=== PATIENT | male | born 1970 | race Caucasian/White ===

== ENCOUNTER → 2017-09-15 13:00 | Outpatient (CLI) | payer BC, SELFPAY ==
[2017-09-16 09:33] LABS: HEPATITIS B SURFACE AG Negative (Negative); Hep C Antibodies <0.1 s/co ratio (0.0-0.9)
== END ==
PROVIDERS: Family Provider Family Medicine; PCP Family Medicine
DX: F11.20 Opioid dependence, uncomplicated (principal)
CPT/HCPCS: 36415; 86803; 87340

== ENCOUNTER 2019-08-30 19:32 | Emergency (ER) | payer BC, SELFPAY ==
[2019-08-30 19:32] VITALS: BP 142/107; PULSE 81; RESP 16; TEMP 36.6; O2SAT 97; BMI 20.3
--- NOTE | 2019-08-30 19:48 | EKG12_ITS ---
Test Reason : DYSRHYTHMIA Blood Pressure : / mmHG Vent. Rate : 085 BPM Atrial Rate : 085 BPM P-R Int : 152 ms QRS Dur : 094 ms QT Int : 356 ms P-R-T Axes : 060 059 072 degrees QTc Int : 423 ms Normal sinus rhythm Normal ECG Confirmed by CHADWICK RADER, ANN ([id number]), editorial clerk MAME MCDAINEL ([id number]) on 08/31/2019 10:06:17 AM Referred By: Confirmed By:ANN GENAO MD
--- NOTE | 2019-08-30 19:58 | RAD_ITS ---
STUDY: X-RAY CHEST REASON FOR EXAM: Male, 48 years old. COMPLAINS OF LUQ ABD PAIN FOR PAST SEVERAL WEEKS. ALSO EPISODES OF CONSTIPATION AND DIARRHEA TECHNIQUE: 2 AP portable view of the chest. COMPARISON: December 04, 2015 FINDINGS: There is hyperinflation of the lungs consistent with chronic obstructive lung disease (COPD). There is no demonstrated pleural abnormality. Normal size heart. Normal mediastinum and maria l. Normal visualized pulmonary arteries. Normal visualized aortic arch and descending thoracic aorta. Normal visualized thoracic spine. Normal visualized ribs, clavicles, and shoulders. There is no demonstrated abnormality of the visualized soft tissue structures of the upper abdomen. RAD/Chest 1 View (Portable) IMPRESSION: COPD Electronically Signed: Mo Juárez MD at 21:00 EDT , Service support ,
[2019-08-30] MEDS: Aspirin 81 MG TAB.CHEW 324 MG PO (19:59)
[2019-08-30 20:00] VITALS: O2SAT 99
[2019-08-30 20:12] LABS: Absolute Lymphocyte Count 1.33 X10^3/uL (0.83-4.51); Absolute Neutrophil Count 3.9 X10^3/uL (2.0-7.7); Basophil# 0.03 X10^3/uL; Basophil% 0.5 % (0-1); Eosinophil# 0.03 X10^3/uL; Eosinophils% 0.5 % (0-5); Hematocrit 42.4 % (40-54); Hemoglobin 14.4 g/dL (13.0-16.5); Lymphocyte # 1.33 X10^3/ul (4.0); Lymphocyte % 22.9 % (19-41); Mean Corpuscular Volume 94.2 fL (80-94); Mean Platelet Vol. 9.9 fl (6.2-12.0); Monocyte# 0.53 X10^3/uL; Monocyte% 9.1 % (0-10); NRBC Flagged by Analyzer 0 % (0-5); Neutrophil # 3.89 X10^3/uL (2.7-7.7); Neutrophil % 66.8 % (47-70); Platelet Count 229 K/mm3 (150-450); RBC Distribution Width CV 12.1 % (11.6-14.6); RBC Distribution Width SD 42.3 fl (35.1-43.9); White Blood Count 5.8 K/mm3 (4.4-11.0)
[2019-08-30 20:24] LABS: ALB/GLOB Ratio 1.4 RATIO (0.9-2.4); AST(SGOT) 18 U/L (15-37); Alanine Aminotransfer ALT/SGPT 30 U/L (16-61); Albumin, Serum 4.4 g/dL (3.2-5.0); Alkaline Phosphatase 82 U/L (45-117); Anion Gap 8 (5-15); BUN 13 mg/dL (7-18); BUN/Creat Ratio 18.2 RATIO (10-20); Chloride 102 mmol/L (98-107); Creatinine, Serum 0.71 mg/dL (0.70-1.30); EST Glomerular Filtration Rate 125 mL/min (>60); Est Glom Filt Rate - Afr Amer 151 mL/min (>60); Estimated Creatinine Clearance 119.32 ml/min; Globulin 3.2 g/dL (2.2-4.2); Glucose 125 mg/dL (74-106); Lipase 117 U/L (73-393); Potassium 3.9 mmol/L (3.5-5.1); Protein, Total 7.6 g/dL (6.4-8.2); Sodium Level 140 mmol/L (136-145)
--- NOTE | 2019-08-30 20:28 | ED.DCSUM_ITS ---
- ER Visit Summary Date of Service: 08/30/19 Chief Complaint: Abdominal pain History of Present Illness: The patient is a 48 M presenting with what he describes as left upper abdominal pain. He states it has been ongoing for the past 3 to 4 weeks. He states it was intermittent but has been continuous all throughout the day. He has had intermittent diarrhea and constipation. Today he had loose stool. He denies blood in his stool. Denies any trauma or heavy lifting. He has mild shortness of breath which he attributed to his asthma. Denies other complaints. He is not a smoker. Denies PE/DVT risk factors. Denies CAD risk factors. Physical Examination: Vitals are stable. Patient is afebrile. Alert no acute distress. HEENT exam is unremarkable. Neck is supple. Lungs are clear and equal bilaterally. Chest is nontender. Heart is regular rate and rhythm. Abdomen is soft nontender nondistended. No guarding or rebound Extremities are unremarkable. Skin is warm and dry. No focal neurologic deficit. Remainder of exam is unremarkable. Emergency Department Course and Treatment: On exam patient actually points to his left chest. His abdomen is soft and nontender. EKG shows normal sinus rhythm rate of 85 with no acute ischemic changes. Chest x-ray shows COPD. CBC, chemistries unremarkable. Liver lipase are normal. Troponin is negative. D- dimer negative. On reevaluation, he now points to his left upper quadrant to explain where the pain was. He is feeling improved. His abdomen continues to be soft and nontender. Recommend delta troponin. Patient does not want to stay for a delta troponin. He signed out AGAINST MEDICAL ADVICE. He is advised to follow up with his primary care physician. Advised return to ED for worsening complaints. Disposition: Left AGAINST MEDICAL ADVICE Impression: Chest/abdominal pain This note was generated with [employer] dictation software. It may contain incorrect words, spelling, and punctuation that were not noted in review of the chart prior to signing ED Disposition - Plan for ED Patient: Referrals: Chris Dhaliwal MD [Primary Care Provider] -
[2019-08-30 21:02] LABS: D-Dimer Quantitative (DVT/PE) <= 0.27 FEU/ug/m (0.27-0.49)
--- NOTE | 2019-08-30 21:25 | ED.DEP ---
ED Disposition - Plan for ED Patient: Instructions: ED Unknown Causes of Abdominal Pain Male, ED Chest Pain Atypical Unkn Cause Referrals: Chris Dhaliwal MD [Primary Care Provider] -
[2019-08-30 21:29] VITALS: BP 140/80; PULSE 78; RESP 16; O2SAT 98
== END 2019-08-30 21:33 | disposition home or self-care (01) ==
LOC: ED 20:12
PROVIDERS: Emergency Provider Emergency Medicine; PCP Family Medicine
DX: R10.12 Left upper quadrant pain (principal); R07.9 Chest pain, unspecified; J45.909 Unspecified asthma, uncomplicated; F32.9 Major depressive disorder, single episode, unspecified; Z79.51 Long term (current) use of inhaled steroids; Z79.899 Other long term (current) drug therapy
CPT/HCPCS: 71045; 80053; 83690; 84484; 85025; 85379; 93005; 99285; A4216

== ENCOUNTER 2020-03-09 11:16 | Day surgery (SDC) | payer BC, SELFPAY ==
--- NOTE | 2020-03-08 19:42 | HP.PCM_ITS ---
History and Physical Date of Admission: 03/09/20 HISTORY AND PHYSICAL ? Tj Perez 1970 ? REFERRING PHYSICIAN: Lucille Anton (Superintendent Power), * ? CHIEF COMPLAINT: Consult (Consult Colonoscopy) ? HPI: The patient is a 49 year old male referred for endoscopy. Tj notes family history of colon cancer in a first-degree relative, and presents for high-risk screening colonoscopy. Patient denies any change in bowel habits, weight changes, blood in stools, black tarry stools or abdominal pain. ? The patient notes no upper GI complaints. ? Tj has not undergone prior endoscopy. ? Patient's past medical history is significant for chronic back pain, past history of drug abuse, asthma. He denies chest pain, shortness of breath or re cent hospitalizations. Denies problems with sedation in the past. ? ? PAST MEDICAL HISTORY ? Chronic back pain ? ? Drug abuse (HCC) ? ? heroin in system during Jan 2015 hospitalization ? Migraine ? ? Unspecified asthma(493.90) ? PAST SURGICAL HISTORY ? LAMINECTOMY,LUMBAR ? 2006 ? Herniated disk ? LAMINECTOMY,LUMBAR ? 2008 ? LEG SURGERY HX Left 09/[facility] ? PAST SURGICAL HISTORY OF Left 11/09/2018 ? Inguinal hernia - Dr. Crews ? REPAIR ING HERNIA,5+Y/O,REDUCIBL ? 06/06/76 ? Hernia repair, inguinal ? SHOULDER SURGERY HX Right 05/29/2016 ? rotator cuff tear, biceps tendinosis, and subacromial impingement-Dr. Lynn Zuniga DO ? CURRENT MEDICATIONS ? buPROPion XL (WELLBUTRIN XL) 150 mg 24 hr tablet Take 1 tablet by mouth once daily. ? traZODone (DESYREL) 50 mg tablet Take 1 tablet by mouth daily at bedtime. ? albuterol HFA (VENTOLIN HFA) 90 mcg/actuation inhaler Inhale 2 Puffs as instructed every 4 hours as needed. For wheezing/shortness of breath. ? sertraline (ZOLOFT) 100 mg tablet Take 2 tablets by mouth once daily. ? budesonide-formoterol (SYMBICORT) 160-4.5 mcg/actuation inhaler inhale 1 to 2 puffs twice a day ? ONE DAILY MULTI-VITAMIN TAB Take one(1) tablet daily. ? ? ALLERGIES: Seasonal Allergies ? PERSONAL HISTORY: SOCIAL HISTORY Social History ?Tobacco Use ? Smoking status: Former Smoker ? ? Packs/day: 0.50 ? ? Types: Cigarettes ? ? Quit date: 02/01/2015 ? ? Years since quittin.0 ? Smokeless tobacco: Current User ? ? Types: Chew ? Tobacco comment: Chews intermittently Substance Use Topics ? Alcohol use: Yes ? ? Comment: rarely ? Drug use: Yes ? ? Types: Heroin, Ecstasy ? ? Comment: Prior drug addiction. Stopped suboxone ? FAMILY HISTORY: ? Colon Cancer Father? unknown onset ? ? The review of systems data was entered by the nurse and reviewed by me ? Nursing Notes: REVIEW OF SYSTEMS: General: The patient denies fatigue, denies weight loss, denies weight gain, denies feeling hot, and denies feelings of cold. Eyes: The patient denies glaucoma, denies eye injury/surgery, does not wear glasses or contacts. Ear/Nose/Throat: The patient denies allergies, denies hayfever, denies ear infections, and denies bloody noses. Cardiovascular: The patient denies chest pain, denies heart disease, denies high blood pressure,denies cardiac stent, denies prior heart attack, denies irregular heart beat, denies high cholesterol, denies poor circulation, denies heart failure, other cardiac issues, denies claudication, denies cold feet, denies peripheral arterial stent. Respiratory: The patient denies tuberculosis, denies pneumonia, denies frequent cough, denies pulmonary embolism, denies shortness of breath, and denies coughing up blood. Gastrointestinal: The patient denies difficulty swallowing, denies acid reflux, denies ulcers, denies vomiting, denies jaundice/hepatitis, denies gallbladder problems, denies black or tarry stools, denies hemorrhoids, denies bleeding from rectum, denies diverticulitis, denies constipation, denies diarrhea, denies loss of stool control, and NOTES hernias. Kidney/Bladder: The patient denies kidney stones, denies urine infections, and denies bloody urine. Skin: The patient denies a history of skin cancer, denies bleeding/changing moles, and denies a history of skin rash. Neurologic: The patient denies a history of epilepsy/convulsions, denies headaches, denies head/spinal injuries, and denies stroke/TIA. Psychiatric: The patient denies psychiatric medications, NOTES depression, and denies voices, denies substance abuse. Endocrine: The patient denies thyroid disorders, denies diabetes, and denies hormonal problems. Hematologic: The patient denies a history of bruising, denies bleeding, and denies anemia, denies blood clots. Infections: The patient denies a history of measles and mumps, denies rheumatic fever, and denies sexually transmitted diseases. Musculoskeletal: The patient NOTES back pain/injury, denies back problems, denies sciatica, denies knee/foot trouble, denies arthritis, or denies gout. ? ? When was patient's last Mammogram screening? N/A ? Last Colonoscopy: NA ? Dimitrios Ramirez I have confirmed and edited as necessary, the PFSH and ROS obtained by others. ? PHYSICAL EXAMINATION: ? General: The patient is 49 year old male, well nourished, well hydrated in no acute distress. The patient is oriented to time, place, and person. ? VITALS: Blood pressure 108/62, pulse 73, temperature 36.8 ?C (98.2 ?F), temperature source Temporal Artery, weight 67.7 kg (149 lb 3.2 oz), SpO2 99 %. Body mass index is 20.81 kg/m?. ? HEENT: Normal cephalic, ataumatic, pupils are equally round, sclera are anicteric, mucous membranes are moist, oropharynx is clear. Neck has no masses, asymmetry or lymphadenopathy. ? Respiratory: Clear to auscultation and percussion. Normal respiratory excursion and pattern. ? Cardiac: Examination is regular rate and rhythm. Normal S1/S2 ? Abdominal exam: Soft, nontender, with no palpable masses. No hepatosplenomegaly. No palpable hernias. ? Extremities: no clubbing, cyanosis or edema. No adenopathy. ? LABORATORY VALUES: As Noted ? RADIOLOGIC STUDIES: As Noted ? ? IMPRESSION: encounter for colonoscopy, family history of colon cancer, history of substance use ? PLAN: I have reviewed my findings with the surgeon. Will plan for lower endoscopy. We discussed the risks and benefits of the planned endoscopy. I have informed the patient that complications can occur including failure to complete the endoscopy and perforation. The patient had the opportunity to ask questions concerning the planned endoscopy. My staff has also explained the procedure to the patient in understandable terms and has given the patient prin james material concerning the procedure. The patient freely consents to surgery. ? The patient was offered a surgery/procedure. I have counseled the patient regarding the risk of exposure to and/or potential harm posed by the COVID-19 virus with having a surgery/procedure at this time versus the risk of? delaying the surgery/procedure. It is not possible to know either the risk of delaying the surgery or procedure or chance of getting an infection with perfect accuracy, but a joint decision was made between the patient and myself?to proceed at this time with endoscopy. ? ? I plan to use Golytely bowel preparation, can substitute Miralax/dulcolax if Golytely unavailable ? We will plan for Monitored Anesthetic Care. ? Patient verbalized understanding of all above and agreed with the plan. ? Diagnoses: (Z80.0) Family hx of colon cancer (primary encounter diagnosis) (Z01.818) Preop testing (Z12.11) Encounter for screening for malignant neoplasm of colon ? ? Arline Liz PA-C
[2020-03-09 11:52] VITALS: BP 136/73; PULSE 65; RESP 16; TEMP 36.6; O2SAT 16; BMI 20.5
[2020-03-09] MEDS: Lactated Ringers 1,000 ML 75 ML IV (12:15)
--- NOTE | 2020-03-09 12:30 | COLBX_PTH ---
PATIENT: SAMEER MAY LOC: EN U#:[id number] AGE/SX: 49/M ROOM: RE03/09/[address]: Dr. Collette Guzman MD : 1970 BED: DIS: 03/09/2020 SPEC #: [id number] RECD: 03/09/20 13:22 STATUS: COBY RESher #: [id number] KATHLEEN: 03/09/20 12:[address]: Collette Guzman DEPT: SURGICAL PATHOLOGY RECD BY: Karina Tomlin ENTERED: 03/10/20 08:08 SP TYPE: COLON BX OTHR DR: Dr. Chris Dhaliwal MD Tissues: COLON BIOPSY Procedures: Surgery Specimen Level IV HEADER OPERATION: Colonoscopy (MAC) PRE-OP DIAGNOSIS: Family history colon cancer TISSUE SUBMITTED: Left colon polyp MICROSCOPIC DIAGNOSIS Left colon polyp, biopsy: Fragments of tubular adenoma. Fragments of fecal material. SJ:samantha 03/13/20 MICROSCOPIC DESCRIPTION Slides are reviewed. GROSS DESCRIPTION Received in fixative is one container labeled with the patient's name and designated left colon polyp. The specimen consists of multiple irregular fragments of morris soft tissue mixed with fecal material that in aggregate measure 1 x 0.5 x 0.1 cm. The specimen is totally submitted in one cassette. / SJ:samantha 03/10/20 TC:1 CPT: 06156
[2020-03-09 12:55] VITALS: BP 111/66; BP 136/72; PULSE 62; RESP 16; TEMP 36.2; O2SAT 98
--- NOTE | 2020-03-09 12:59 | OP.CCLET_ITS ---
03/09/2020 Chris Dhaliwal [address] [place] [address] Re : Colonoscopy procedure for Tj Perez Dear Dr. Dhaliwal This procedure was performed on February. My impressions and recommendations are as follows: Impressions : - One 4 to 9 mm polyp in the proximal descending colon, removed with a hot snare. Resected and retrieved. - Non-bleeding internal hemorrhoids. Prominent anal papillae Recommendations : - Repeat colonoscopy in 5 years for surveillance based on pathology results. - Return to primary care physician PRN. - Continue present medications. My findings are described in the full procedure note, which is enclosed. If I can be of further assistance, please feel free to contact me at Doctor phone number(s): , Work: . Sincerely, MD Collette Mcfarlane MD 03/09/2020 12:58:41 PM This report has been signed electronically.
--- NOTE | 2020-03-09 12:59 | OP.COLON_ITS ---
Patient Name: Tj Perez Procedure Date: 03/09/2020 12:17 PM Date of : 1970 Age: 49 Procedure: Colonoscopy Indications: Family history of colon cancer in a first-degree relative Providers: Collette Guzman MD Referring MD: Chris Dhaliwal Medicines: See the Anesthesia note for documentation of the administered medications Patient Profile: Refer to note in patient chart for documentation of history and physical. Last Colonoscopy: none. The patient's first colonoscopy is today. Complications: No immediate complications. Procedure: Pre-Anesthesia Assessment: - see anesthesia note After I obtained informed consent, the scope was passed under direct vision. Throughout the procedure, the patient's blood pressure, pulse, and oxygen saturations were monitored continuously. The Colonoscope was introduced through the anus and advanced to the cecum, identified by the appendiceal orifice, ileocecal valve and palpation. The colonoscopy was performed without difficulty. The patient tolerated the procedure well. The quality of the bowel preparation was adequate to identify polyps 6 mm and larger in size and was poor, there was still retained fecal material. Therefore lavage and aspiration was done to clear the fecal material. This took some time. The cline were cleared adequately, though the fecal material was very viscous and inspissated. Scope In: 12:30:38 PM Scope Withdrawal Time 0 hours 11 minutes 31 seconds Scope Out: 12:50:24 PM Total Procedure Duration Time 0 hours 19 minutes 46 seconds Findings: The perianal and digital rectal examinations were normal. Pertinent negatives include normal sphincter tone. A 4 to 9 mm polyp was found in the proximal descending colon. The polyp was sessile. The polyp was removed with a hot snare. Resection and retrieval were complete. Verification of patient identification for the specimen was done by the nurse. Estimated blood loss was minimal. Non-bleeding internal hemorrhoids were found. Impression: - One 4 to 9 mm polyp in the proximal descending colon, removed with a hot snare. Resected and retrieved. - Non-bleeding internal hemorrhoids. Prominent anal papillae Recommendation: - Repeat colonoscopy in 5 years for surveillance based on pathology results. - Return to primary care physician PRN. - Continue present medications. Procedure Code(s): --- Professional --- 76842, Colonoscopy, flexible; with removal of tumor(s), polyp(s), or other lesion(s) by snare technique Diagnosis Code(s): --- Professional --- D12.4, Benign neoplasm of descending colon K64.8, Other hemorrhoids Z80.0, Family history of malignant neoplasm of digestive organs CPT copyright 2017 [employer]. All rights reserved. The codes documented in this report are preliminary and upon enrobing machine corder review may be revised to meet current compliance requirements. MD Collette Mcfarlane MD 03/09/2020 12:58:41 PM This report has been signed electronically. Number of Addenda: 0 Note Initiated On: 03/09/2020 12:17 PM
[2020-03-09 13:00] VITALS: BP 100/68; BP 136/72; PULSE 58; RESP 16; O2SAT 97
[2020-03-09 13:05] VITALS: BP 105/67; BP 136/72; PULSE 56; RESP 16; O2SAT 98
[2020-03-09 13:10] VITALS: BP 102/63; BP 136/72; PULSE 55; RESP 98; TEMP 36.4
[2020-03-09 13:43] VITALS: BP 136/72
== END 2020-03-09 13:46 | disposition home or self-care (01) ==
LOC: EN 11:17 → AC 11:17
PROVIDERS: PCP Family Medicine; Referring Provider Family Medicine; Visit Provider Surgery
PROC: 0DJD8ZZ Inspection of Lower Intestinal Tract, Via Natural or Artificial Opening Endoscopic (ICD-10-PCS; CPT 45378; principal; 2020-03-09 12:25)
DX: Z12.11 Encounter for screening for malignant neoplasm of colon (principal); D12.4 Benign neoplasm of descending colon; K64.8 Other hemorrhoids; Z80.0 Family history of malignant neoplasm of digestive organs; J45.909 Unspecified asthma, uncomplicated; F41.9 Anxiety disorder, unspecified; F32.9 Major depressive disorder, single episode, unspecified; Z20.828 Contact with and (suspected) exposure to other viral communicable diseases; Z79.51 Long term (current) use of inhaled steroids; Z87.891 Personal history of nicotine dependence; Z79.899 Other long term (current) drug therapy
CPT/HCPCS: 45380; 87426; 88305; C9803; J7120; J2405

== ENCOUNTER 2022-05-16 13:32 | Emergency (ER) | payer BC, SELFPAY ==
[2022-05-16 13:32] VITALS: BP 125/96; PULSE 71; RESP 16; TEMP 36.6; O2SAT 100; BMI 21.6
--- NOTE | 2022-05-16 14:07 | CT_ITS ---
STUDY: CT ABDOMEN AND PELVIS WITH CONTRAST REASON FOR EXAM: Male, 51 years old. 6 day history of lower abdominal pain. History of ethanol abuse. RADIATION DOSAGE (If Supplied By Facility): CTDIvol = ( 10.73 ) mGy, DLP = ( 537.65 ) mGycm TECHNIQUE: Transaxial images were obtained from the dome of the diaphragm to the symphysis pubis without oral contrast. IV 100mL Isovue-300 was administered. Sagittal and coronal images were reconstructed. Individualized dose optimization techniques were used for this CT. COMPARISON: None. FINDINGS: The visualized lung bases are unremarkable. The visualized portions of the heart are within normal limits. There is decreased attenuation of the liver consistent with steatosis. Normal gallbladder and extrahepatic biliary system. Normal spleen. Normal pancreas. Normal bilateral adrenal glands. Normal right kidney. Normal left kidney. Normal visualized stomach. Nondistended fluid-filled small bowel loops in the mid and distal abdomen. Normal colon. The appendix is visualized and appears normal. There is scattered atherosclerotic calcification of the abdominal aorta, without a demonstrated aneurysm. Normal inferior vena cava. Normal retroperitoneum. Normal urinary bladder. There are prostatic calcifications. Normal abdominal wall. Disc space narrowing at the L5-S1 level. Straightening of the normal lumbar lordosis. CT/Abdomen/Pelvis W IV Cont ONLY IMPRESSION: Fatty infiltration of the liver. Nondilated fluid-filled small bowel loops in the distal bowel. Electronically Signed: Mark Serna MD at 15:03 EST ,
--- NOTE | 2022-05-16 14:08 | ED.VIS.GI ---
HPI HPI - GI History of Present Illness Chief Complaint: Abd Pain Narrative Narrative: 51-year-old male past medical history of alcohol use, previous hernia repair, presents with pain in his lower abdomen, stating that his abdomen is locking up. Its been doing it for 6 days straight according to him. We will get these pains and cramping in his lower abdomen where he states his abdomen seizes up. It will then release. He called his primary care provider who told him to use a heating pad. He is not taking anything for analgesia. He did note that he drinks about 8-10 beers a day, but is cut that in half over the last few days. No fevers or chills. No nausea or vomiting. No diarrhea or problems with bowel movements. No dysuria or hematuria. He presents because of the pain that has been continuous, waxing and waning, over the last 6 days. PFSH PFSH Home Medications sertraline 50 mg tablet 100 mg PO DAILY depression 02/01/15 [History Last Taken 05/29/16 06:30] budesonide-formoterol HFA 160 mcg-4.5 mcg/actuation aerosol inhaler 1 - 2 puff inhalation BID 09/13/15 [History Last Taken 05/29/16 06:30] trazodone 50 mg tablet 50 mg PO QHS PRN Sleep 03/27/17 [History Last Taken Unknown] albuterol sulfate 90 mcg/actuation aerosol inhaler 1 puff inhalation Q4H PRN PRN Sob &/Or Wheezing 03/06/20 [History Last Taken Unknown] dicyclomine 20 mg tablet 20 mg PO TID PRN abdominal cramping #20 tabs 05/16/22 [Rx Last Taken Unknown] Allergy/AdvReac Type Severity Reaction Status Date / Time No Known Allergies Allergy Verified 03/06/20 12:28 Surgical History femur and fibula surgery s/p back S/P right rotator cuff repair Social History Smoking Status: Former smoker ROS ROS ED ROS Narrative Constitutional: No fever, no chills. HEENT: No sore throat. No neck pain. No loss of vision. No rhinorrhea. Cardiovascular: No chest pain. No palpitations. No pedal edema. Respiratory: No cough, no shortness of breath. Abdominal: Lower abdominal pain, 2 inches below navel/belt line, cramping abdominal pain. No nausea. No vomiting. No diarrhea. No problems with bowel movements. Genitourinary: No dysuria. No hematuria. Musculoskeletal: No myalgias. No arthralgias. Neurologic: No headaches. No dizziness. No lightheadedness. Skin: No rash. No change in color. Psychiatric: No depression. No anxiety. EXAM Physical Exam Narrative Exam Narrative: Afebrile. Vital signs noted. HEENT: Normocephalic. Atraumatic. PERRL, EOMI. Neck soft and supple. No point tenderness or step off. Cardiovascular: Regular rate and rhythm. No murmurs, rubs, or gallops appreciated. Respiratory: No tachypnea. Lungs clear to auscultation bilaterally. Gastrointestinal: Abdomen soft, mild tenderness suprapubically and in the left lower quadrant. With normoactive bowel sounds. No rebound or guarding. Neurological: Awake. Alert. Nonfocal, nonlateralizing. Skin: No rash. Normal color. No pallor. Musculoskeletal: No pedal edema. Full range of motion extremities. Const Vital Signs: 05/16/22 13:32 Temperature 97.9 F Temperature Source Temporal Pulse Rate 71 Respiratory Rate 16 Blood Pressure 125/96 H Blood Pressure Mean 105 Pulse Ox 100 Oxygen Delivery Method Room Air MDM MDM MDM Narrative Medical decision making narrative: Comprehensive work-up was pursued. Concern is for diverticulitis versus bladder infection versus ureterolithiasis. I do feel CT imaging is indicated. I reviewed the patient's laboratory work and he has a normal white count of 4.7, hemoglobin normal at 14.4, hematocrit 42.7. Platelet count normal at 240. CMP shows normal sodium of 139 with normal potassium of 4.1. Glucose appropriately elevated at 113 with an anion gap normal at 5. BUN is normal at 11 with creatinine normal at 0.75. Urinalysis shows no signs of infection with 0-5 WBCs. I do not feel that antibiotics are indicated. He was administered Bentyl 20 mg intramuscularly for his abdominal cramping. I reviewed his CT results of his abdomen and pelvis with IV contrast which does demonstrate fluid-filled small bowel loops that are nondistended which I think is nonspecific. Upon repeat examination at approximately 1515, his abdomen remains soft but he states he still having cramping. I will write him a prescription for Bentyl to try and he can follow-up with his primary care physician. He may require follow-up with gastroenterology and can be referred by his primary care provider. At this point in time, I feel he can be discharged safely home with follow-up. Regarding his alcohol use, I did discuss with him the possibility of detox, but he states he does not want that today when it was offered. He states he is working on [employer] and wants to go to [facility] so when he is ready, he will call outpatient detox, and return to the emergency department for inpatient detox when needed. There are no active signs of alcohol withdrawal currently. I feel he can be discharged safely home with follow-up. Return instructions were reviewed. Disposition is discharged home in stable condition. Lab Data Attestation: I reviewed the patient's lab results. Labs: Laboratory Results - last 24 hr 05/16/22 05/16/22 05/16/22 14:00 14:15 14:15 WBC 4.7 RBC 4.58 L Hgb 14.4 Hct 42.7 MCV 93.2 MCH 31.4 MCHC 33.7 RDW Std Deviation 41.3 RDW Coeff of Anna 12.0 Plt Count 240 MPV 10.0 Immature Gran % (Auto) 0.400 Neut % (Auto) 58.6 Lymph % (Auto) 28.7 Cecil % (Auto) 10.8 H Eos % (Auto) 1.1 Baso % (Auto) 0.4 Absolute Neuts (auto) 2.8 Absolute Lymphs (auto) 1.36 Nucleated RBC % 0 Sodium 139 Potassium 4.1 Chloride 104 Carbon Dioxide 30.0 Anion Gap 5 BUN 11 Creatinine 0.75 Estim Creat Clear Calc 115.88 Est GFR (MDRD) Af Amer 140 Est GFR (MDRD) Non-Af 116 BUN/Creatinine Ratio 14.6 Glucose 113 H Calcium 9.8 Total Bilirubin 0.90 AST 22 ALT 32 Alkaline Phosphatase 90 Total Protein 7.8 Albumin 4.4 Globulin 3.4 Albumin/Globulin Ratio 1.3 Lipase 134 Urine Color Yellow Urine Clarity Sl. Cloudy Urine pH 8.0 Ur Specific [place] 1.015 Urine Protein Negative Urine Glucose (UA) Normal Urine Ketones 5 H Urine Occult Blood Negative Urine Nitrite Negative Urine Bilirubin Negative Urine Urobilinogen Normal Ur Leukocyte Esterase 25 H Urine RBC 0-5 SEEN Urine WBC 0-5 SEEN Ur Squamous Epith Cells 0-5 SEEN Amorphous Sediment 1+ Urine Bacteria RARE Urine Mucus RARE Radiography Diagnostic Testing: Clinical Impression(s) from Imaging Studies Abdomen/Pelvis CT 05/16/22 14:07 IMPRESSION: Fatty infiltration of the liver. Nondilated fluid-filled small bowel loops in the distal bowel. Electronically Signed: Mark Serna MD at 15:03 EST , Discharge Plan Triage Chief Complaint: Abd Pain ED Provider: Cleveland Bingham Dx/Rx/DC Orders Clinical Impression: Abdominal pain, Abdominal cramping Instructions: ED Abdominal Pain Unkn Cause Male... Prescriptions: New dicyclomine 20 mg tablet 20 mg PO TID PRN (Reason: abdominal cramping) Qty: 20 0RF No Action trazodone 50 mg tablet 50 mg PO QHS PRN (Reason: Sleep) sertraline 50 MG tablet 100 mg PO DAILY Label Comments: take 1 tablet once daily budesonide-formoterol 1 INHALER inhaler 1 - 2 puff INHALATION BID Label Comments: albuterol sulfate 1 PUFF inhaler 1 puff INHALATION Q4H PRN PRN (Reason: Sob &/Or Wheezing) Primary Care Provider: Chris Dhaliwal Referrals: Chris Dhaliwal MD [Primary Care Provider] - 3-5 Days if not improving Disposition Disposition: Home, Self Care
[2022-05-16 14:23] LABS: Absolute Lymphocyte Count 1.36 X10^3/uL (0.83-4.51); Absolute Neutrophil Count 2.8 X10^3/uL (2.0-7.7); Basophil# 0.02 X10^3/uL; Basophil% 0.4 % (0-1); Eosinophil# 0.05 X10^3/uL; Eosinophils% 1.1 % (0-5); Hematocrit 42.7 % (40-54); Hemoglobin 14.4 g/dL (13.0-16.5); Lymphocyte # 1.36 X10^3/ul (0.83-4.51); Lymphocyte % 28.7 % (19-41); Mean Corp Hgb Conc 33.7 g/dL (32-36); Mean Corpuscular Hgb 31.4 pg (27.0-32.0); Mean Corpuscular Volume 93.2 fL (80-94); Monocyte# 0.51 X10^3/uL; Monocyte% 10.8 % (0-10); NRBC Flagged by Analyzer 0 % (0-5); Neutrophil # 2.78 X10^3/uL (2.7-7.7); Neutrophil % 58.6 % (47-70); Platelet Count 240 K/mm3 (150-450); RBC Distribution Width SD 41.3 fl (35.1-43.9); Red Blood Count 4.58 M/mm3 (4.6-6.2); White Blood Count 4.7 K/mm3 (4.4-11.0)
[2022-05-16] MEDS: Dicyclomine 20 MG/2 ML Vial IM (14:23)
[2022-05-16] MEDS: 0.9% Normal Saline 1,000 ML 1000 ML IV (14:23)
[2022-05-16 14:38] LABS: Color, Urine Yellow (Yellow); Glucose, Dipstick Normal (Normal); Ketone-Dipstick 5 mg/dl (Negative); Leukocyte Esterase-Dipstick 25 /ul (Negative); Nitrite-Dipstick Negative (Negative); Occult Blood-Urine Negative /ul (Negative); Protein-Dipstick Negative (Negative); Specific Gravity, Urine 1.015 (1.002-1.030); Urine Bilirubin Dipstick Negative (Negative); Urine Clarity Sl. Cloudy (Clear); Urine Urobilinogen Normal (Normal)
[2022-05-16 14:45] LABS: ALB/GLOB Ratio 1.3 RATIO (0.9-2.4); AST(SGOT) 22 U/L (15-37); Alanine Aminotransfer ALT/SGPT 32 U/L (16-61); Albumin, Serum 4.4 g/dL (3.2-5.0); Alkaline Phosphatase 90 U/L (45-117); Anion Gap 5 (5-15); BUN 11 mg/dL (7-18); BUN/Creat Ratio 14.6 RATIO (10-20); Calcium,Total 9.8 mg/dL (8.5-10.1); Chloride 104 mmol/L (98-107); Creatinine, Serum 0.75 mg/dL (0.70-1.30); EST Glomerular Filtration Rate 116 mL/min (>60); Est Glom Filt Rate - Afr Amer 140 mL/min (>60); Estimated Creatinine Clearance 115.88 ml/min; Globulin 3.4 g/dL (2.2-4.2); Glucose 113 mg/dL (74-106); Lipase 134 U/L (73-393); Potassium 4.1 mmol/L (3.5-5.1); Protein, Total 7.8 g/dL (6.4-8.2); Sodium Level 139 mmol/L (136-145)
[2022-05-16 14:50] LABS: Amorphous Sediment 1+; Bacteria RARE /hpf (None Seen); Mucous, Urine RARE /hpf (<or=2+); Red Blood Cells-Urine 0-5 SEEN /hpf (0-5); Squamous Epithelial Cells - UA 0-5 SEEN /hpf (0-5); White Blood Cells 0-5 SEEN /hpf (0-5)
== END 2022-05-16 15:42 | disposition home or self-care (01) ==
PROVIDERS: Emergency Provider Emergency Medicine; PCP Family Medicine; Visit Provider Emergency Medicine
DX: R10.9 Unspecified abdominal pain (principal); Z87.891 Personal history of nicotine dependence
CPT/HCPCS: 74177; 80053; 81001; 83690; 85025; 96360; 99283; J7030; Q9967; A4216

== ENCOUNTER 2022-08-27 10:16 | Emergency (ER) | payer BC, SELFPAY ==
[2022-08-27 10:17] VITALS: BP 159/91; PULSE 68; RESP 18; TEMP 36.6; O2SAT 100; BMI 21.9
--- NOTE | 2022-08-27 10:33 | EX.ED.DYSGE1 ---
HPI History of Present Illness Chief Complaint: Headache PFSH PFSH Home Medications sertraline 50 mg tablet 100 mg PO DAILY depression 02/01/15 [History Last Taken 05/29/16 06:30] budesonide-formoterol HFA 160 mcg-4.5 mcg/actuation aerosol inhaler 1 - 2 puff inhalation BID 09/13/15 [History Last Taken 05/29/16 06:30] trazodone 50 mg tablet 50 mg PO QHS PRN Sleep 03/27/17 [History Last Taken Unknown] albuterol sulfate 90 mcg/actuation aerosol inhaler 1 puff inhalation Q4H PRN PRN Sob &/Or Wheezing 03/06/20 [History Last Taken Unknown] metoclopramide HCl 5 mg tablet (Reglan) 5 mg PO Q8H PRN PRN nausea and vomiting 7 days #20 tabs 08/27/22 [Rx Last Taken Unknown] Allergy/AdvReac Type Severity Reaction Status Date / Time No Known Allergies Allergy Verified 08/27/22 10:17 Surgical History femur and fibula surgery s/p back S/P right rotator cuff repair Social History Smoking Status: Current every day smoker tobacco type: cigarettes and smokeless tobacco EXAM Physical Exam Const Vital Signs: 08/27/22 10:17 Temperature 97.9 F Temperature Source Temporal Pulse Rate 68 Respiratory Rate 18 Blood Pressure 159/91 H Blood Pressure Mean 113 Pulse Ox 100 Oxygen Delivery Method Room Air MDM MDM MDM Narrative Medical decision making narrative: HISTORY OF PRESENT ILLNESS: 51-year-old male here with headache. States been on for 1 month. States off and on. States getting worse. The headache is not worse in the morning. States he has pain in his jaw that goes up to his head. He denies any numbness, tingling, slurred speech, difficulty swallowing, difficulty talking, loss of sensation or movement in his extremities. He further states headache feels like fullness. He denies any head trauma. Denies any family or personal history of connective tissue diseases or aneurysms. Denies any chest pain, neck pain. Patient denies sudden onset or thunderclap headache, denies maximal intensity within 1 minute, vomiting, neck pain or stiffness, changes in vision, fever, history malignancy, syncope, seizures. REVIEW OF SYSTEMS: Pertinent positives: Headache Pertinent negatives: Focal numbness weakness or loss of sensation PHYSICAL EXAM: Nursing triage notes reviewed, Vital signs reviewed Constitutional: please see mdm HENT: MMM, no temporal artery tenderness Eyes: Pupils equal round and reactive to light, Extraocular muscles intact Neck: No stridor, no JVD, full neck ROM, no carotid bruits Lungs: Clear to auscultation, No wheezing or rales. No increased work of breathing, no conversational dyspnea, no accessory muscle use, no nasal flaring. No respiratory distress noted Heart: Regular rate and rhythm, No murmurs, No rubs and No gallops, 2+ distal pulses (radial, femoral, posterior tibial) in all extremities Abdomen: Soft, there is no tenderness, rigidity, rebound or guarding, no obvious peritoneal signs, no palpable pulsatile abdominal masses, no auscultated abdominal bruit : No CVAT Extremities: No edema Neuro: Alert and oriented x3, neuro exam at baseline, cranial nerves II through XII are intact. No pain with extraocular muscle movement. There is negative test of skew. Normal speech. 5 of 5 strength in upper and lower extremities in flexion extension. Intact sensation to light touch in upper and lower extremity dermatomes. No truncal or extremity ataxia. No dysdiadochokinesia. Normal gait. 2+ reflexes. No meningeal signs. Negative Babinski. NIH of 0 Skin: No rash or lesions noted MEDICAL DECISION MAKING: Chief Complaint: Headache External records reviewed: No recent advanced imaging of the brain Factors affecting care: Depression, asthma Social determinants of health: Tobacco abuse History obtained from others: Consults: Radiology -spoke with Dr. Serna no evidence of acute infarct noted. ALL IMAGES HAVE BEEN PERSONALLY REVIEWED AND INTERPRETED BY MYSELF. [facility] Narrative: Patient was hemodynamically stable, afebrile, nontoxic-appearing. Neurologic exam without deficits. NIH of 0. I considered the following differential diagnosis: ICH, subarachnoid hemorrhage, temporal arteritis, carotid artery dissection, meningitis, primary headache (migraine, cluster, tension) CT scan showed no evidence of mass or bleed. There was a questionable old infarction noted by radiology. Discussed with the radiologist he confirms this appears old. The fact we see on CT further indicates is old. The patient was offered labs, further evaluation, risk factor modification and MRI. Patient states that there is not cancer I did not want additional testing or admission at this time he agrees to follow with his primary doctor for ongoing evaluation and risk factor modification. The patient is likely suffering from tension headache or other primary headache. There is no signs of meningitis temporal arteritis or carotid artery dissection at this time. Repeat neurologic exam prior to discharge was intact with no focal deficits patient NIH was 0. He is appropriate for discharge home. The patient looks great and is in no significant objective discomfort currently. The patient's headache is non-specific. Exam is unremarkable. The patient is in no distress and the patient?s neurological exam is non-focal, neck is supple and without meningismus. The headache is not consistent with meningitis or infection, nor is it consistent with intracranial bleed (SAH etc.), carotid dissection, nor mass by history and examination. Medication and outpatient follow-up was instructed. The patient was instructed to return as needed or if symptoms changed or worsened, fever developed or inability to tolerate fluids. The patient agreed with plan. The patient and/or family, caregivers express understanding. The patient and/or family, caregivers agrees with the plan. Total critical care time today provided was at least 0 minutes. This excludes separately billable procedures. Critical care time if documented is secondary to the patient having high probability of clinically significant/life threatening deterioration in the patient's condition which required my urgent intervention. Shared decision making: I will have a discussion with the patient and or visitors regarding risk/benefits of further testing or admission. They will be made aware of of the risk/benefits inherent in this decision they will be given the opportunity to voice understanding. Radiography Diagnostic Testing: Clinical Impression(s) from Imaging Studies Brain CT 08/27/22 10:48 IMPRESSION: Small polyp or retention cyst in the right maxillary sinus with mucosal thickening. Findings suggestive of a lacunar infarct in the left basal ganglion. Electronically Signed: Mark Serna MD at 12:09 EDT , Facial/Sinus 08/27/22 10:48 IMPRESSION: Mucosal thickening and a polyp or retention cyst in the right maxillary sinus with narrowing of the right ostiomeatal meatal complex. Electronically Signed: Mark Serna MD at 12:12 EDT , Discharge Plan Triage Chief Complaint: Headache ED Provider: Jose De Jesus Clarke Dx/Rx/DC Orders Clinical Impression: Headache, History of CVA in adulthood Instructions: ED Headache Unspecified Prescriptions: New metoclopramide HCl [Reglan] 5 mg tablet 5 mg PO Q8H PRN PRN (Reason: nausea and vomiting) 7 Days Qty: 20 0RF No Action trazodone 50 mg tablet 50 mg PO QHS PRN (Reason: Sleep) sertraline 50 MG tablet 100 mg PO DAILY Label Comments: take 1 tablet once daily budesonide-formoterol 1 INHALER inhaler 1 - 2 puff INHALATION BID Label Comments: albuterol sulfate 1 PUFF inhaler 1 puff INHALATION Q4H PRN PRN (Reason: Sob &/Or Wheezing) Stand Alone Forms: ED Work / School Excuse Primary Care Provider: Chris Dhaliwal Referrals: Chris Dhaliwal MD [Primary Care Provider] - Rich Escobar MD [Non-Staff] - Activity Restrictions/Additional Instructions: Thank you for trusting us with your care today! Please take Tylenol (2 pills, 650 mg), ibuprofen (2 pills, 400 mg) every 6 hours as needed for pain and fever control. Please take Reglan as well for breakthrough pain if Tylenol and ibuprofen do not control your symptoms. Please return to the emergency department if your symptoms change or worsen. Specifically if you develop worsening headache, changes in vision, slurred speech, difficulty swallowing, difficulty talking, loss of movement and sensation in your extremities. Please follow with your primary care physician for further outpatient evaluation and management specifically for risk factors for cardiovascular disease. Disposition Disposition: Home, Self Care
--- NOTE | 2022-08-27 10:48 | CT_ITS ---
STUDY: CT MAXILLOFACIAL SINUSES REASON FOR EXAM: Male, 51 years old. R/o mass RADIATION DOSAGE (If Supplied By Facility): CTDIvol = ( 29.38 ) mGy, DLP = ( 584.19 ) mGycm TECHNIQUE: The patient was scanned in a multi detector CT scanner. High resolution axial imaging was performed without the administration of intravenous contrast material. Sagittal and coronal images were reconstructed. Individualized dose optimization techniques were used for this CT. COMPARISON: None. FINDINGS: FRONTAL SINUSES: Normal aeration, without mucosal inflammatory disease. ETHMOIDAL SINUSES: Normal aeration, without mucosal inflammatory disease. MAXILLARY SINUSES: Mucosal thickening of the right maxillary sinus with a small air-fluid level. There is a 1 cm polyp or retention cyst along the anterior medial aspect of the right maxillary sinus. Minimal mucosal thickening at the base of the left maxillary sinus. SPHENOIDAL SINUSES: Normal aeration, without mucosal inflammatory disease. There is obliteration of the right ostiomeatal complex due to focal mucosal thickening on the right side. There is anam bullosa of the left middle turbinate. Normal bilateral inferior turbinates. Normal midline nasal septum. There is patency of the bilateral nasal airways. The visualized osseous structures are normal. The visualized bilateral orbital contents are normal. CT/Sinus/Facial Bone IMPRESSION: Mucosal thickening and a polyp or retention cyst in the right maxillary sinus with narrowing of the right ostiomeatal meatal complex. Electronically Signed: Mark Serna MD at 12:12 EDT ,
--- NOTE | 2022-08-27 10:48 | CT_ITS ---
STUDY: CT BRAIN WITHOUT CONTRAST REASON FOR EXAM: Male, 51 years old. WANG, r/o ICH, mass RADIATION DOSAGE (If Supplied By Facility): CTDIvol = ( 44.99 ) mGy, DLP = ( 846.73 ) mGycm TECHNIQUE: Transaxial CT imaging of the brain was performed without administration of intravenous contrast material. Individualized dose optimization techniques were used for this CT. COMPARISON: No relevant priors. FINDINGS: Normal soft tissue structures. Normal calvarium. Normal size ventricles and extra-axial spaces for the patient''s age. Normal white matter tracts of the cerebral hemispheres. Decreased attenuation is seen in the left basal ganglia suggestive of a lacunar infarct. Normal brainstem. Normal cerebellum. There is no intracranial hemorrhage. There are no findings of an acute ischemic infarction. Small air-fluid level seen in the inferior aspect of the right maxillary sinus. As also evidence of a small polyp in the anterior aspect of the right maxillary sinus measuring [address]/Brain/Head without Contrast IMPRESSION: Small polyp or retention cyst in the right maxillary sinus with mucosal thickening. Findings suggestive of a lacunar infarct in the left basal ganglion. Electronically Signed: Mark Serna MD at 12:09 EDT ,
[2022-08-27 12:39] VITALS: PULSE 78; RESP 18; O2SAT 100
== END 2022-08-27 12:40 | disposition home or self-care (01) ==
PROVIDERS: Emergency Provider Emergency Medicine; PCP Family Medicine; Visit Provider Emergency Medicine
DX: R51.9 Headache, unspecified (principal); J45.909 Unspecified asthma, uncomplicated; F17.210 Nicotine dependence, cigarettes, uncomplicated; Z86.73 Personal history of transient ischemic attack (TIA), and cerebral infarction without residual deficits; F17.220 Nicotine dependence, chewing tobacco, uncomplicated
CPT/HCPCS: 70450; 70486; 99282

== ENCOUNTER 2024-07-05 08:31 | Emergency (ER) | payer BC, SELFPAY ==
[2024-07-05 08:31] VITALS: BP 146/109; PULSE 80; RESP 16; TEMP 36.6; O2SAT 96; BMI 41.1
--- NOTE | 2024-07-05 08:40 | RAD_ITS ---
PROCEDURE: CALCANEUS MIN 2 VIEWS N/A REASON FOR EXAM: INJURY TECHNIQUE: Two views of the right calcaneus (os calcis). COMPARISON: None FINDINGS: Normal bone mineralization. No evidence of fracture. No focal osseous lesion. Subtalar joint is unremarkable. Alignment is preserved. Soft tissues are unremarkable. No radiopaque foreign body identified. RAD/Calcaneus min 2 Views IMPRESSION: NEGATIVE CALCANEUS. Reading Location: [facility]
--- NOTE | 2024-07-05 08:41 | ED.VIS.LOWEX ---
HPI History of Present Illness Chief Complaint: Lower Extremity Injury Detail of Chief Complaint: Right foot injury Informant: patient Narrative Narrative: Patient presents to the emergency department with complaint of injury to his right foot. Patient states that he was mushroom hunting yesterday and jumped off a log about 4 feet onto a pointy rock that he did not see because of some leaf coverage. He injured his foot and now complains of pain. Having hard time bearing weight secondary to pain. Denies any other injuries. PFSH PFSH Home Medications ?Medication ?Instructions ?Recorded ?Last Taken ?Type sertraline 50 mg tablet 100 mg PO DAILY depression 02/01/15 05/29/16 06:30 History budesonide-formoterol HFA 160 1 - 2 puff inhalation BID 09/13/15 05/29/16 06:30 History mcg-4.5 mcg/actuation aerosol inhaler trazodone 50 mg tablet 50 mg PO QHS PRN Sleep 03/27/17 Unknown History albuterol sulfate 90 mcg/actuation 1 puff inhalation Q4H PRN PRN Sob 03/06/20 Unknown History aerosol inhaler &/Or Wheezing metoclopramide HCl 5 mg tablet 5 mg PO Q8H PRN PRN nausea and 08/27/22 Unknown Rx (Reglan) vomiting 7 days #20 tabs hydrocodone-acetaminophen 5-325mg 1 tab PO Q4H PRN PRN Pain 2 days 07/05/24 Unknown Rx 5mg-325mg #10 TABLETS Allergy/AdvReac Type Severity Reaction Status Date / Time No Known Allergies Allergy Verified 07/05/24 08:32 Surgical History S/P right rotator cuff repair femur and fibula surgery s/p back Social History Smoking Status: Current every day smoker tobacco type: cigarettes and smokeless tobacco ROS ROS ED Review of Systems ROS Unobtainable: other Constitutional Constitutional ED: Reports lethargy; Denies chills, fever(s), sweats or weight loss Eyes Eyes: Denies blurry vision, change in vision or diplopia ENT ENT ED: Denies rhinorrhea or sore throat Cardiovascular Cardiovascular: Denies chest pain, orthopnea or racing heartbeat Respiratory/Chest Respiratory/Chest: Denies cough, dyspnea, dyspnea on exertion, orthopnea or sputum Gastrointestinal Gastrointestinal: Denies abdominal pain, diarrhea, nausea or vomiting Genitourinary Genitourinary ED: Denies dysuria, hematuria or urinary frequency Musculoskeletal Musculoskeletal: Reports other Details: Right foot injury ; Denies arthralgias, back pain, myalgias or neck pain Integumentary Denies abscess, Abrasions or rash Neurologic Neurologic: Denies headache(s) or weakness Psychiatric Psychiatric: Denies anxiety, depression or suicidal thoughts Endocrine Endocrinology: Denies polydipsia, polyphagia or polyuria Hematologic/Lymphatic Hematologic/Lymphatic: Denies easy bleeding, easy bruising or lymphadenopathy Allergic/Immunologic Allergic/Immunologic ED: Denies mouth swelling, tongue swelling or urticaria EXAM Physical Exam Const Vital Signs: 07/05/24 08:31 Temperature 98 F Temperature Source Oral Pulse Rate 80 Respiratory Rate 16 Blood Pressure 146/109 H Blood Pressure Mean 121 Pulse Ox 96 Oxygen Delivery Method Room Air Positive well nourished and well developed General Appearance ED: well developed and NAD HEENT Reports TM's clear and moist mucous membranes normocephalic and atraumatic; Negative for trauma or tenderness Tympanic Membrane ED: Yes TM's clear Eyes PERRL and EOMs intact bilaterally General Eye ED: Negative for pale conjunctiva or scleral icterus Neck no lymphadenopathy, supple and no JVD General: Negative for tenderness Chest Wall inspection of chest normal and palpation of chest normal Chest: Negative for tenderness Resp normal respiratory effort and clear to auscultation bilaterally Effort and Inspection: Negative for respiratory distress or pain with movement Auscultation: Negative for rhonchi, wheezes or diminished lung sounds Cardio regular rate, regular rhythm, S1 normal heart sound, S2 normal heart sound and no murmurs Peripheral Pulses: pulses 2+ throughout GI normal to inspection, nondistended, normoactive bowel sounds, soft to palpation, non-tender, non-distended and no masses Back/Spine no CVA tenderness and no thoracic nor lumbar tenderness Extremity Extremity Narrative: Right foot-patient does have some ecchymosis and bruising over the proximal dorsal lateral aspect of the foot. Diffuse tenderness over the calcaneus. No obvious deformity. No pain at the proximal fibular head. No pain at the base of the fifth metatarsal. No real tenderness over the medial or lateral malleolus. General Extremety ED: Negative for edema General Extremity: Negative for edema Neuro oriented x3, CN's II-XII intact bilaterally, no sensory deficits noted and gait normal Sensorium / Orientation: awake, alert, oriented to person, oriented to place and oriented to time Motor Exam: strength 5/5 throughout and strength abnormal Psych mental status grossly normal Skin no rashes or lesions noted and no wounds MDM MDM MDM Narrative Medical decision making narrative: Patient presents with foot injury. We did obtain x-rays of the right foot and the right heel. Our PACS system is currently not operational and I am not able to visualize the images. Radiology did read the images and interpreted the foot and heel as negative for fracture. Patient will be given an air splint and Calixto wrap. He has crutches. Will be given work restrictions and a few [place] for pain. Radiography Diagnostic Testing: Clinical Impression(s) from Imaging Studies Os Calcis X-ray 07/05/24 08:40 IMPRESSION: NEGATIVE CALCANEUS. Reading Location: [facility] Foot X-Ray 07/05/24 08:45 IMPRESSION: No acute abnormality is seen. Reading Location: [facility] Discharge Plan Triage Chief Complaint: Lower Extremity Injury ED Provider: Seth Oneill Dx/Rx/DC Orders Clinical Impression: Contusion of foot, right, Right foot sprain Instructions: ED Contusion, Lower Extremity, ED Foot Sprain Prescriptions: New hydrocodone-acetaminophen 5-325 mg tablet 1 tab PO Q4H PRN PRN (Reason: Pain) 2 Days Qty: 10 0RF No Action trazodone 50 mg tablet 50 mg PO QHS PRN (Reason: Sleep) sertraline 50 MG tablet 100 mg PO DAILY Patient Comments: take 1 tablet once daily budesonide-formoterol 1 INHALER inhaler 1 - 2 puff INHALATION BID Patient Comments: albuterol sulfate 1 PUFF inhaler 1 puff INHALATION Q4H PRN PRN (Reason: Sob &/Or Wheezing) metoclopramide HCl [Reglan] 5 mg tablet 5 mg PO Q8H PRN PRN (Reason: nausea and vomiting) 7 Days Qty: 20 0RF Primary Care Provider: Chris Dhaliwal Referrals: Chris Dhaliwal MD [Primary Care Provider] - Bryant Barclay DPM [Med Staff - Active Staff] - 5-7 Days Print Language: Faroese Disposition Disposition: Home, Self Care
--- NOTE | 2024-07-05 08:45 | RAD_ITS ---
EXAM: Right foot CLINICAL HISTORY: Pain. COMPARISON: None TECHNIQUE: Three views were obtained. FINDINGS: There is good alignment. No acute abnormality is seen. RAD/Foot min 3 Views IMPRESSION: No acute abnormality is seen. Reading Location: [place] [id number]
[2024-07-05 09:23] VITALS: BP 146/109; PULSE 80; RESP 16; TEMP 36.6; O2SAT 96
== END 2024-07-05 09:23 | disposition home or self-care (01) ==
PROVIDERS: Emergency Provider Emergency Medicine; PCP Family Medicine; Visit Provider Emergency Medicine
DX: S90.31XA Contusion of right foot, initial encounter (principal); S93.601A Unspecified sprain of right foot, initial encounter; F17.210 Nicotine dependence, cigarettes, uncomplicated; F17.220 Nicotine dependence, chewing tobacco, uncomplicated; W22.09XA Striking against other stationary object, initial encounter; Y93.01 Activity, walking, marching and hiking
CPT/HCPCS: 73630; 73650; 99283